=== PATIENT | female | born 1985 | race Caucasian/White ===

== ENCOUNTER 2019-08-28 08:07 | Outpatient (AMBR) | payer OTHER, SELFPAY ==
--- NOTE | 2019-08-28 16:19 | PTNOTE_ITS ---
PT OP Initial Eval Patient Information Visit Reasons: sciatica Medical Diagnosis: M54.31 Treatment Dx #1: Back Pain Treatment Dx #2: Right LE Pain Start of Care: 08/28/19 Initial Assessment Subjective Pt is a 33 y/o reports of worsening back pain and right LE symptoms a few weeks ago after she was trying to put her boot on. Pt mention that she does have 2 known disc bulge from a work injury ~ 5 years ago. No recent xray or MRI done thus far. Pt mention that her back pain is 5-7/10 based on activities. Pt has limitation with prolonged sitting, standing, walking, lifting, chores, self care, work duties, and recreational activities. Objective L/S AROM: all motions are WFL with end range in flexion and right sidebending Hip PROM: all motions are WFL Hip MMTs Glute Med: 3/5 Glute Max: 3/5 Special Test (+) slump test (+) crossed SLR (+) SLR Palpation: TTP and hypomobile L3-L5 facets Assessment Pt demonstrate back pain and R LE weakness consistent with discogenic lesion leading to decline function. Pt will attempt physical therapy if pain persist Pt will be refer back to MD for further consultation. Short Term and Aerobics Teacher Goals 1) Increase L/S AROM WNL in 6 wks to be able to perform work duties with less limitation 2) Increase core strength WFL in 6 wks to be able to perform recreational activties 3) Increase hip MMTs grossly to 4-/5 in 6 wks to be able to ambulate more than 1.5 hrs 4) Decrease back pain to 2/10 in 6 wks to be able to sit and stand longer than 1 hr 5) Indep with HEP Treatment Plan 1) Manual Therapy 2) Therapeutic Activities 3) Therapeutic Exercises 4) Modalities (ice, heat, traction) Frequency and Duration 2 x wk for 6 wks Certification Dates: 08/28/19 to 11/28/19 Office Procedures PT Procedures PT Date of Service: 08/28/19 OP PT Eval Mod Complex 30 minutes: Yes
== END 2019-08-29 23:59 | disposition home or self-care (01) ==
PROVIDERS: PCP Family Medicine; Referring Provider Family Medicine; Visit Provider Family Medicine
DX: M54.31 Sciatica, right side (principal); M79.661 Pain in right lower leg; R26.2 Difficulty in walking, not elsewhere classified; R53.1 Weakness
CPT/HCPCS: 97162

== ENCOUNTER 2019-08-30 10:30 | Outpatient (AMBR) | payer OTHER, SELFPAY ==
--- NOTE | 2019-08-30 12:11 | PT.ODAYNRPT ---
PT Outpatient Daily Note Date of Service: 08/30/19 OP Daily Note Visit Reasons: [facility] Outpatient Physical Therapy Treatment Date: 08/30/19 Subjective: Pt mention that her back feels the same. No change in almonte and still notice shooting pain down the right leg. Objective: Please see flow chart for list of ther ex performed Assessment: difficulty with nerve glide exercise. Minimal change in LE symptoms with manual traction. Plan: Continue with PT Length of Time (minutes) of Treatment: 30 Minutes Office Procedures PT Procedures PT Date of Service: 08/30/19 Therapeutic Exercise 30 minutes: Yes
--- NOTE | 2019-09-05 10:17 | PTNOTE_ITS ---
PT Outpatient Daily Note Date of Service: 09/05/19 OP Daily Note Visit Reasons: [facility] Outpatient Physical Therapy Treatment Date: 09/05/19 Subjective: Pt's back is sore and still has pain. No increase in shooting pain after last treatment session. Objective: Please see flow chart for list of ther ex performed Assessment: STM to bilateral paraspinal musculature at the L3-L5 decrease tension allowing her to get into prone on elbow. Unable to progress her to prone press up due to increase radicular pain down the right leg and only tolerate ~ 3 mins of COLBY. Pt modifed back to flexion biased exercises which she tolerate more and able to complete. Pt continues to exhibit right sciatic nerve irritation with nerve glide. Plan: Continue with PT Length of Time (minutes) of Treatment: 45 Minutes Office Procedures PT Procedures PT Date of Service: 08/30/19 Therapeutic Exercise 30 minutes: Yes PT Procedures PT Date of Service: 09/05/19 Therapeutic Exercise 30 minutes: Yes Manual Senior Instructional Designer 15 minutes: Yes
--- NOTE | 2019-09-07 10:21 | PTNOTE_ITS ---
PT Outpatient Daily Note Date of Service: 09/07/19 OP Daily Note Visit Reasons: [facility] Outpatient Physical Therapy Treatment Date: 09/07/19 Subjective: Pt mention that her back is better. still notice stiffness and int ermittent numbness down the right leg. Objective: Please see flow chart for list of ther ex performed Assessment: decrease paraspinal tone today able to progress to partial prone press up. Pt's right LE increase in numbness after prone press up which went away after sci fit. Pt is able to tolerate more extension based exercise today Plan: Continue with PT Length of Time (minutes) of Treatment: 55 Minutes Office Procedures PT Procedures PT Date of Service: 09/07/19 Therapeutic Activity 15 minutes: Yes Therapeutic Exercise 30 minutes: Yes Manual Director Of Vocational Training 15 minutes: Yes PT Procedures PT Date of Service: 08/30/19 Therapeutic Exercise 30 minutes: Yes PT Procedures PT Date of Service: 09/05/19 Therapeutic Exercise 30 minutes: Yes Manual Director Of Vocational Training 15 minutes: Yes
--- NOTE | 2019-09-14 13:20 | PT.ODAYNRPT ---
PT Outpatient Daily Note Date of Service: 09/14/2019 OP Daily Note Visit Reasons: [facility] Outpatient Physical Therapy Treatment Date: 09/14/19 Subjective: pt states her back still feels the same as usual. Objective: see flow sheet. Assessment: pt tends to rotate her pelvis during the hip extension in prone. placed hand on her low back and corrected her ROM of hip extension which stopped the rotation. she was limited with prone press ups due to her disc injury. she has fair-good bed mobility but with pain. Plan: continue POC per PT. Length of Time (minutes) of Treatment: 30 Minutes Office Procedures PT Procedures PT Date of Service: 09/07/19 Therapeutic Activity 15 minutes: Yes Therapeutic Exercise 30 minutes: Yes Manual Editor Book 15 minutes: Yes PT Procedures PT Date of Service: 09/14/19 Therapeutic Exercise 30 minutes: Yes PT Procedures PT Date of Service: 08/30/19 Therapeutic Exercise 30 minutes: Yes PT Procedures PT Date of Service: 09/05/19 Therapeutic Exercise 30 minutes: Yes Manual Editor Book 15 minutes: Yes
--- NOTE | 2019-09-18 15:44 | PT.ODAYNRPT ---
PT Outpatient Daily Note Date of Service: 09/18/2019 OP Daily Note Visit Reasons: [facility] Outpatient Physical Therapy Treatment Date: 09/18/19 Subjective: pt states her back feels the same. she has been working from home and sitting down a lot which could be reason of increased pain. Objective: see flow sheet. Assessment: although she has pain she manages to continue with ther ex and complete all reps. she has good ROM of the hips during her stretch and can maintain the stretch. the ones she has pressure with are the hip extensions in prone. she did perform them with better understanding but still discomfort and muscle fatigue. she can perform bed mobility on her own without assistance. Plan: continue POC per PT. Length of Time (minutes) of Treatment: 30 Minutes Office Procedures PT Procedures PT Date of Service: 09/07/19 Therapeutic Activity 15 minutes: Yes Therapeutic Exercise 30 minutes: Yes Manual Drier Transfer Car Operator 15 minutes: Yes PT Procedures PT Date of Service: 09/14/19 Therapeutic Exercise 30 minutes: Yes PT Procedures PT Date of Service: 08/30/19 Therapeutic Exercise 30 minutes: Yes PT Procedures PT Date of Service: 09/05/19 Therapeutic Exercise 30 minutes: Yes Manual Drier Transfer Car Operator 15 minutes: Yes PT Procedures PT Date of Service: 09/18/19 Therapeutic Exercise 30 minutes: Yes
--- NOTE | 2019-09-25 11:54 | PTNOTE_ITS ---
PT OP Progress/Discharge Note Date of Service: 09/25/19 Progress Note/DC Note Progress Note/Discharge Note: DC Note Patient Information Visit Reasons: [facility] Medical Diagnosis: M54.31 Treatment Dx #1: Back Pain Treatment Dx #2: Right LE Pain Service Continue Service or Discharge: Discharge Discharge Date: 09/25/19 Status Subjective: Pt mention that her back pain and right LE symptoms ar the same. Pt continues to have pain and shooting pain down the legs. Minimal changes since starting physical therapy. Pt has limitation with prolonged sitting, standing, chores, cooking, cleaning, walking, lifting, and performing recreational activities. Objective: L/S AROM: all motions are WFL with end range pain in flexion and right sidebending Hip PROM: all motions are WFL Hip MMTs Glute Med: 3+/5 Glute Max: 3+/5 Special Test (+) slump (+) crossed SLR Assessment: Pt continues to have back pain with mobility deficits leading to limitation with ADLs. At this time Pt will no longer benefit from physical therapy due to minimal progression towards goals as well as changes with symptoms. Pt was not instructed on HEP due to exercises increase back pain. Pt instructed to follow up with MD for further consultation, thank you for your referrals. Plan: D/C home with HEP and follow up with MD Office Procedures PT Procedures PT Date of Service: 09/07/19 Therapeutic Activity 15 minutes: Yes Therapeutic Exercise 30 minutes: Yes Manual Batting Machine Operator Insulation 15 minutes: Yes PT Procedures PT Date of Service: 09/14/19 Therapeutic Exercise 30 minutes: Yes PT Procedures PT Date of Service: 08/30/19 Therapeutic Exercise 30 minutes: Yes PT Procedures PT Date of Service: 09/05/19 Therapeutic Exercise 30 minutes: Yes Manual Batting Machine Operator Insulation 15 minutes: Yes PT Procedures PT Date of Service: 09/18/19 Therapeutic Exercise 30 minutes: Yes PT Procedures PT Date of Service: 09/25/19 Therapeutic Exercise 30 minutes: Yes
== END 2019-09-29 23:59 | disposition home or self-care (01) ==
PROVIDERS: PCP Family Medicine; Referring Provider Family Medicine; Visit Provider Family Medicine
DX: M54.41 Lumbago with sciatica, right side (principal); R26.2 Difficulty in walking, not elsewhere classified
CPT/HCPCS: 97110; 97140; 97530

== ENCOUNTER → 2024-02-12 | Outpatient (CLI) | payer BC, MEDICAID, SELFPAY ==
--- NOTE | 2024-02-12 15:15 | XR_ITS ---
Examination: MRI cervical spine, without intravenous contrast. MRI cervical spine , with intravenous contrast. Exam date and time: February 12, 2024 1514 hrs. Indications: Neck pain for years, diagnosis Arnold-Chiari malformation 2019 post surgical decompression 2020, history seizures cavity Technique: Multiple axial, sagittal and coronal images of the cervical spine have been obtained with the Siemens high-resolution 1.5 Cyndi MRI scanner. Images obtained included T2 weighted fat suppressed sagittal sections, TR 3500, TE 46, T2 weighted coronal fat suppressed images, TR 3050, TE 84, T2-weighted transverse fat suppressed images, TR 30-60, TE 63, proton density transverse images, TR 4720, TE 46, and T1 weighted coronal images, TR 560, TE 13. Axial, sagittal and coronal images are obtained post intravenous injection 13 cc gadolinium. 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
--- NOTE | 2024-02-12 16:00 | XR_ITS ---
Examination: MRI thoracic cord, without intravenous contrast. MRI thoracic cord , with intravenous contrast. Exam date and time: February 02, 2024 at 1511 hrs. Indications: History Arnold-Chiari malformation post surgical decompression 2020, MR thoracic spine January 17, 2020 thoracic syrinx cavity T1-T5 Technique: Multiple axial, sagittal and coronal images of the thoracic cord have been obtained with the Siemens high-resolution 1.5 Cyndi MRI scanner. Images obtained included T2 weighted fat suppressed sagittal sections, TR 3500, TE 46, T2 weighted coronal fat suppressed images, TR 3050, TE 84, T2-weighted transverse fat suppressed images, TR 30-60, TE 63, proton density transverse images, TR 4720, TE 46, and T1 weighted coronal images, TR 560, TE 13. Axial, sagittal and coronal images are obtained post intravenous injection 13 cc gadolinium. Findings: Syrinx cavity cervical cord previously described Syrinx cavity thoracic cord T3-T5,. AP dimension 2 mm No focal thoracic disc protrusion No thoracic vertebral body compression fracture Postcontrast images demonstrate no abnormal osseous or thoracic cord tumor enhancement Impression: Thoracic cord syrinx cavity T3-T5
== END | disposition home or self-care (01) ==
LOC: SMRI 14:44
PROVIDERS: PCP Family Medicine; Referring Provider Family Medicine; Visit Provider Family Medicine
DX: K74.60 Unspecified cirrhosis of liver (principal); M53.84 Other specified dorsopathies, thoracic region
CPT/HCPCS: 72156; 72157; A9579

== ENCOUNTER → 2024-04-12 | Outpatient (CLI) | payer BC, MEDICAID, SELFPAY ==
[2024-04-12 10:56] LABS: Alanine Aminotransferase 20 U/L (10-49); Albumin, Serum 4.3 gm/dL (3.5-5.0); Albumin/Globulin Ratio 2.3 (1.2-2.2); Alkaline Phosphatase 38 U/L (46-116); Anion Gap 5 (7-16); Aspartate Amino Transferase 16 U/L (0-34); BUN/Creatinine Ratio 23 Ratio (12-20); Bilirubin,Total 0.5 mg/dL (0.3-1.2); Blood Urea Nitrogen 16 mg/dL (9-23); Calcium 9.5 mg/dL (8.3-10.6); Calcium (Corrected) 9.5 mg/dL (8.5-10.1); Carbon Dioxide 27.2 mMol/L (20.0-31.0); Cardiac Risk Estimate 3.4 RATIO (3.7-5.6); Chloride 110 mMol/L (98-107); Cholesterol 201 mg/dL (132-200); Creatinine (Component) 0.7 mg/dL (0.6-1.3); Globulin 1.9 gm/dL (2.3-3.5); Glucose 77 mg/dL (74-106); HDL Cholesterol 59 mg/dL (40-60); LDL Cholesterol,Calculated 128 mg/dL (0-130); Osmolality,Calculated 283 (275-295); Potassium 4.3 mMol/L (3.4-5.1); Sodium 142 mMol/L (136-145); Total Protein 6.2 gm/dL (5.7-8.2); Triglycerides 68 mg/dL (30-150); eGFR > 60 See Note
== END | disposition home or self-care (01) ==
PROVIDERS: PCP Family Medicine; Referring Provider Family Medicine; Visit Provider Family Medicine
DX: E78.5 Hyperlipidemia, unspecified (principal)
CPT/HCPCS: 36415; 80053; 80061

== ENCOUNTER → 2024-12-26 | Outpatient (CLI) | payer BC, MEDICAID, SELFPAY ==
--- NOTE | 2024-12-26 15:13 | XR_ITS ---
EXAMINATION: Right foot first digit 2 views TECHNIQUE: AP lateral right foot first digit 2 views Date and time: December 26, 2024, 1523 hours INDICATIONS: First digit swelling and pain this month. FINDINGS: Intact osseous structures No fracture or dislocation No arthritic change Minimal narrowing first metatarsophalangeal joint IMPRESSION: Minimal narrowing first metatarsal-phalangeal joint
--- NOTE | 2024-12-26 15:13 | XR_ITS ---
Examination: Foot, right, 3 views Technique: AP, oblique, lateral views foot, 3 views Date and time of exam: December 26, 2024 1522 hours INDICATIONS: Right first digit pain 1 month. FINDINGS: Mild narrowing first metatarsophalangeal joint. No fracture or dislocation. No cortical bone destruction IMPRESSION: Early osteoarthritis first metatarsal phalangeal joint
== END | disposition home or self-care (01) ==
PROVIDERS: PCP Family Medicine; Referring Provider Family Medicine; Visit Provider Family Medicine
DX: M25.871 Other specified joint disorders, right ankle and foot (principal); M19.071 Primary osteoarthritis, right ankle and foot
CPT/HCPCS: 73630; 73660

== ENCOUNTER → 2024-12-26 | Outpatient (CLI) | payer BC, MEDICAID, SELFPAY ==
[2024-12-26 13:39] LABS: Collection Type, Urine Clean Catch
[2024-12-26 13:46] LABS: Basophils # (Auto) 0.0 Thou/mm3 (0.0-0.2); Basophils % (Auto) 0 % (0-2.5); Eosinophils # (Auto) 0.1 Thou/mm3 (0.0-0.5); Eosinophils % (Auto) 1 % (0-10); Hematocrit 41.1 % (36.0-46.0); Hemoglobin 14.0 g/dL (12.0-16.0); Immature Granulocytes Auto 0.01 Thou/mm3 (0.00-0.00); Lymphocytes # (Auto) 1.8 Thou/mm3 (1.0-4.8); Lymphocytes % (Auto) 30 % (10-50); Mean Corpuscular HGB Conc 34.1 g/dl (31.0-37.0); Mean Corpuscular Hemoglobin 32.7 pg (25.0-35.0); Mean Corpuscular Volume 96 fL (80-100); Monocytes # (Auto) 0.6 Thou/mm3 (0.0-0.8); Monocytes % (Auto) 10 % (0-12); Neutrophils # (Auto) 3.5 Thou/mm3 (1.8-7.7); Neutrophils % (Auto) 59 % (37-80); Nucleated Red Blood Cell # 0.00 Thou/mm3 (0.00-0.00); Nucleated Red Blood Cell % 0 /100 WBC (0); Platelet Count 230 Thou/mm3 (140-440); RDW Standard Deviation 42.3 fL (36.4-46.3); Red Blood Count 4.28 Miln/mm3 (4.00-5.20); White Blood Count 6.0 Thou/mm3 (3.6-11.0)
[2024-12-26 13:57] LABS: Bilirubin,Urine Negative (Negative); Blood,Urine Negative (Negative); Clarity,Urine Clear (Clear/Hazy); Color,Urine Yellow (Lt Yel-Yel); Glucose, Urine Negative (Negative); Ketones,Urine Negative (Negative); Leukocyte Esterase,Urine Negative (Negative); Nitrite,Urine Negative (Negative); PH,Urine 5.5 (5.0-7.0); Protein,Urine Negative (Neg - Trace); RBC,Urine 5 /hpf (0-3); Specific Gravity,Urine 1.027 (1.001-1.035); Squamous Epithelial Cell,Urine 3 /hpf (0-5); Urobilinogen,Urine Negative mg/dL (0.0-1.0); WBC,Urine < 1 /hpf (0-5)
[2024-12-26 14:05] LABS: Alanine Aminotransferase 11 U/L (10-49); Albumin, Serum 4.8 gm/dL (3.5-5.0); Albumin/Globulin Ratio 2.8 (1.2-2.2); Alkaline Phosphatase 29 U/L (46-116); Anion Gap 9 (7-16); Aspartate Amino Transferase 15 U/L (0-34); BUN/Creatinine Ratio 11 Ratio (12-20); Bilirubin,Total 0.7 mg/dL (0.3-1.2); Blood Urea Nitrogen 9 mg/dL (9-23); Calcium 9.1 mg/dL (8.3-10.6); Calcium (Corrected) 9.1 mg/dL (8.5-10.1); Carbon Dioxide 27.0 mMol/L (20.0-31.0); Cardiac Risk Estimate 3.6 RATIO (3.7-5.6); Chloride 106 mMol/L (98-107); Cholesterol 222 mg/dL (132-200); Creatinine (Component) 0.8 mg/dL (0.6-1.3); Globulin 1.7 gm/dL (2.3-3.5); Glucose 90 mg/dL (74-106); HDL Cholesterol 61 mg/dL (40-60); LDL Cholesterol,Calculated 141 mg/dL (0-130); Osmolality,Calculated 281 (275-295); Potassium 4.0 mMol/L (3.4-5.1); Sodium 142 mMol/L (136-145); Thyroid Stimulating Hormone 1.35 uIU/mL (0.55-4.78); Total Protein 6.5 gm/dL (5.7-8.2); Triglycerides 98 mg/dL (30-150); eGFR > 60 See Note
[2024-12-26 14:12] LABS: Vitamin D 25 Hydroxy Total 27.8 ng/mL (7.3-40.2)
== END | disposition home or self-care (01) ==
LOC: COPL 12:58
PROVIDERS: PCP Family Medicine; Referring Provider Family Medicine; Visit Provider Family Medicine
DX: Z00.00 Encounter for general adult medical examination without abnormal findings (principal); M08.00 Unspecified juvenile rheumatoid arthritis of unspecified site; Z13.0 Encounter for screening for diseases of the blood and blood-forming organs and certain disorders involving the immune mechanism; Z13.29 Encounter for screening for other suspected endocrine disorder; Z13.21 Encounter for screening for nutritional disorder; Z13.1 Encounter for screening for diabetes mellitus
CPT/HCPCS: 36415; 80053; 80061; 81001; 82306; 84443; 85025; 87086

== ENCOUNTER → 2025-01-17 | Outpatient (CLI) | payer BC, MEDICAID, SELFPAY ==
--- NOTE | 2025-01-17 | XR_ITS ---
EXAMINATION: Right elbow 2 views TECHNIQUE: AP lateral right elbow 2 views Date and time: January 17, 2025, 12:30 p.m. INDICATIONS: Right elbow pain beginning 3 months ago. FINDINGS: No fracture or dislocation. No elbow effusion. No significant arthritic change IMPRESSION: No fracture No significant arthritic change
== END | disposition home or self-care (01) ==
PROVIDERS: PCP Family Medicine; Referring Provider Family Medicine; Visit Provider Family Medicine
DX: M25.521 Pain in right elbow (principal)
CPT/HCPCS: 73070